=== PATIENT | male | born 1980 | race Caucasian/White ===

== ENCOUNTER 2022-06-08 11:48 | Emergency (ER) | payer MEDICAID, SELFPAY ==
[2022-06-08 11:50] VITALS: BP 152/87; PULSE 85; RESP 18; TEMP 36.8; O2SAT 100; BMI 20.5
--- NOTE | 2022-06-08 12:10 | PC.NURSE ---
pt up to bathroom, no issues noted.
--- NOTE | 2022-06-08 12:19 | PC.NURSE ---
updated pt about and baby asking to come back with pt, due to our increase in covid pts it was recommended that and baby not be put in the open cloth room with pt. Pt agreeable with recommendation.
--- NOTE | 2022-06-08 13:13 | [facility].EDGENADL ---
ED Disposition Clinical Impression: Abscess of axilla, left Disposition: Home, Self-Care Condition on Discharge: Good Instructions: DI for Skin Abscess Additional Instructions: You have been evaluated for skin abscess. The abscess has been opened and drained. Please take antibiotics as prescribed. Use warm compresses over the area, wash it at least once or twice daily. Follow-up with your primary care doctor for wound recheck in 1 to 2 days. Return to the emergency department at once for any new or worsening symptoms, pain, fevers, chills, other concerns. Prescriptions: Sulfamethoxazole/Trimethoprim [Bactrim DS tablet] 1 each PO BID #14 tab Transmission Status: Pending to [facility] #[id number] Referrals: Jane Mata [Primary Care Provider] - Time of Disposition: 13:38 - Critical Care Critical Care Time: No Attestation: On 06/08/22, the high probability of a clinically significant, sudden or life threatening deterioration of the following system(s) required my full and direct attention, intervention and personal management. The time I documented below is in addition to time spent performing reported procedures but includes the following listed in this critical care notation. Medical Decision Making - Medical Records Medical records reviewed: Yes: I reviewed the patient's medical records. - Navin Inquiry Pt receiving controlled substance: No Vital Signs: 06/08/22 11:50 Temperature 98.3 F Temperature Source Oral Pulse Rate [Left Radial] 85 Respiratory Rate 18 Blood Pressure [Right Arm] 152/87 H Blood Pressure Mean [Right Arm] 108 Blood Pressure Source [Right Arm] Automatic Cuff Blood Pressure Position [Right Arm] Sitting 02 Sat by Pulse Oximetry 100 Oxygen Delivery Method Room Air Orders (Tests/Meds): ED MEDICATIONS Discontinued Medications Generic Name Dose Route Start Last Admin Trade Name Freq PRN Reason Stop Dose Admin Tetanus/Reduced Diphtheria/Acell Pertussis 0.5 ml 06/08/22 11:55 06/08/22 12:05 Tet/Diphth/Pert-Adult 0.5ml Syringe IM 06/08/22 11:56 0.5 ml .ONCE ONE Administration Medical Decision Narrative: In summary this is a 41-year-old male presenting to the emergency department with an area of red painful swelling to his left axilla. Patient clinically stable on arrival. Vital signs within normal limits. Physical exam is most concerning for abscess, there is an area of fluctuance. He is otherwise well-appearing. No signs of systemic illness. Anesthetized with 1% lidocaine. Incision made with an 11 blade scalpel. Expression of 3 cc of thick, purulent fluid. Procedure well-tolerated. Wound dressed. Patient given prescription for Bactrim. Given return precautions. Stable for discharge. General Adult HPI - General Chief complaint: Skin/Abscess/Foreign Body Stated complaint: Red knot left arm pit Time Seen by Provider: 06/08/22 12:13 Mode of Arrival: Ambulatory Limitations: No Limitations Description of Symptoms (Recalled from ER Triage Doc. by RN): c/o red swollen area under left arm pit for one week - History of Present Illness HPI narrative: 41-year-old male presenting to the emergency department with an area of red, painful swelling in his left axilla. He noticed it about 1 week ago. It was initially a small, red bump. Over the last 2 days it has become larger, swollen, tender. Hurts to touch., Hurts to move the arm. He has had problems like this before, required drainage in the emergency department. Unsure if he is ever been told he has MRSA. No medications prior to arrival. No recent antibiotic use. No fevers, chills, nausea, vomiting. No other spots on his skin. No numbness, weakness, tingling in the left hand. No IV drug use. - Related Data Previous Rx's Medication Instructions Recorded Sulfamethoxazole/Trimethoprim 1 each PO BID #14 tab 06/08/22 [Bactrim DS tablet] Allergies Allergy/AdvReac Type Severity Reacti
[2022-06-08 13:57] VITALS: BP 144/76; PULSE 82; RESP 18; TEMP 36.8; O2SAT 100
== END 2022-06-08 13:58 | disposition home or self-care (01) ==
PROVIDERS: Emergency Provider Emergency Medicine; PCP Nurse Practitioner Family
DX: L02.412 Cutaneous abscess of left axilla (principal); Z23 Encounter for immunization; Z88.1 Allergy status to other antibiotic agents
CPT/HCPCS: 10060; 90471; 90715; 99283